=== PATIENT | female | born 1945 | race Caucasian/White ===

== ENCOUNTER 2024-05-15 16:40 | Emergency (ER) | payer SELFPAY ==
[2024-05-15] VITALS (16 sets, daily range): BP systolic 145–194; BP diastolic 76–147
[~2024-05-15] VITALS: Ht 170.2 cm; Wt 153.0 kg
[2024-05-15] MEDS ORDERED: LEVOTHYROXIN125 MCG PO (17:00)
[2024-05-15 17:19] LABS: HEMATOCRIT 44.6 % (37.0-47.0); HEMOGLOBIN 13.7 g/dl (12.0-16.0); IMMATURE GRANULOCYTES 0.2 % (0.0-5.0); LYMPH% 21.5 % (15-41); MEAN CORPUSCULAR HGB 29.8 pG CALC (26.0-32.0); MEAN CORPUSCULAR HGB CONC 30.7 g/dL CAL (32.0-36.0); MONO% 8.4 % (2-13); NEUT# 4.01 thou/uL (2.00-7.15); NEUT% 64.9 % (42-76); RED BLOOD COUNT 4.6 mill/uL (4.20-5.60); RED CELL DISTRI WIDTH 17.1 % (11.5-15.5)
[2024-05-15 17:31] LABS: ALBUMIN 4.3 g/dL (3.2-5.0); BILIRUBIN, TOTAL 1.6 mg/dL (0.02-1.3); CREATININE 0.7 mg/dL (0.5-1.0); POTASSIUM 4.7 mmol/l (3.5-5.1); TOTAL PROTEIN 8.1 g/dL (6.3-8.2)
[2024-05-15 18:29] LABS: URINE BILIRUBIN - DIPSTICK Negative (NEGATIVE); URINE BLOOD DIPSTICK Small (NEGATIVE); URINE GLUCOSE - DIPSTICK Negative (NEGATIVE); URINE KETONE Negative (NEGATIVE); URINE LEUK ESTERASE Trace (NEGATIVE); URINE NITRITE - DIPSTICK Negative (Negative); URINE PH 5.5 (4.5-8.0); URINE PROTEIN - DIPSTICK 30 mg/dL (NEG-TRACE)
[2024-05-15 18:30] LABS: URINE COLOR Yellow
[2024-05-15 18:35] LABS: URINE MUCUS RARE hpf (NONE-FEW); URINE RBC 0-2 RBC/hpf (0-5); URINE WBC 0-2 WBC/hpf (0-5)
[2024-05-15] MEDS ORDERED: cloNIDine HCL 0.1 MG/TAB PO ONE (18:40)
[2024-05-15] MEDS ORDERED: METOLAZONE 2.5 MG/TAB PO ONE (20:25)
[2024-05-15] MEDS ORDERED: BUMETANIDE 1 MG/4 ML VIAL IV ONE (20:25)
[2024-05-15] MEDS ORDERED: LASIX20 MG PO (20:25)
[2024-05-15] MEDS ORDERED: LOSARTAN POTASS50 MG PO (20:25)
[2024-05-15] MEDS ORDERED: SPIRONOLACT25 MG PO (20:25)
== END 2024-05-15 21:30 | disposition home or self-care (01) | DRG 204 ==
LOC: ED 16:40
PROVIDERS: Family Medicine
DX: R06.02 Shortness of breath (principal); R60.0 Localized edema; J18.9 Pneumonia, unspecified organism; I11.0 Hypertensive heart disease with heart failure; I50.9 Heart failure, unspecified; I48.91 Unspecified atrial fibrillation; E66.01 Morbid (severe) obesity due to excess calories; E03.9 Hypothyroidism, unspecified
CPT/HCPCS: Q9967